=== PATIENT | female | born 1980 | race American Indian/Alaskan Native ===

== ENCOUNTER 2025-06-11 12:00 | Emergency (ER) | payer OTHER ==
[~2025-06-11] VITALS: Ht 165.1 cm; Wt 82.6 kg
[2025-06-11] MEDS ORDERED: FAMOTIDINE/PF 20 MG/2 ML VIAL IV PUSH STA (14:25)
[2025-06-11 15:51] LABS: BASO % 0.4 % (0.1-1.2); EOS # 0.17 (0.04-0.54); EOS % 2.2 % (0.7-7.0); LYMPH # 1.84 (1.18-3.74); LYMPH % 24.3 % (19.3-53.1); MEAN PLATELET VOLUME 10.20 fl (9.4-12.4); MONO # 0.74 (0.24-0.82); MONO % 9.8 % (4.7-12.5); NEUT # 4.76 (1.56-6.13); NEUT % 63.0 % (34.0-71.1); RED CELL DISTRIBUTION WIDTH 14.3 % (11.6-14.4)
[2025-06-11 16:17] LABS: ALT/SGPT 30.0 U/L (12-78); AST/SGOT 15.0 U/L (15-37); BILIRUBIN TOTAL 0.22 mg/dL (0.3-1.2); BUN CREA RATIO 14.0 (7.0-25.0); CREATININE SERUM 0.71 mg/dL (0.55-1.02); GFR 88.62; GLOBULINA 3.7 G/DL (2.4-3.5); GLUCOSE FASTING 99.0 mg/dL (65-100); OSMOLALITY SERUM 282.0 MOSM/KG (275-295)
[2025-06-11] MEDS ORDERED: PEPCID AC20 MG PO (19:24)
[2025-06-11] MEDS ORDERED: DICLOFENAC SODI75 MG PO (19:24)
[2025-06-11] MEDS ORDERED: NORFLEX100MG PO (19:24)
== END 2025-06-11 19:36 | disposition home or self-care (01) ==
LOC: ER 12:00
PROVIDERS: General Practice
DX: M62.838 Other muscle spasm (principal); R51.9 Headache, unspecified; Z88.2 Allergy status to sulfonamides; Z91.041 Radiographic dye allergy status